=== PATIENT | female | born 1995 | race Caucasian/White ===

== ENCOUNTER 2019-03-14 07:44 | Day surgery (SDC) | payer OTHER ==
[2019-03-14] VITALS (15 sets, daily range): BP systolic 96–153; BP diastolic 51–81; PULSE 60–92; RESP 16–24; Ht 170.2 cm; Wt 112.2 kg
[~2019-03-14] VITALS: Ht 170.2 cm; Wt 112.2 kg
[~2019-03-14 07:44] MED LIST: DESFLURANE 15 MIN ONE
[2019-03-14] MEDS ORDERED: CEFAZOLIN 1 GM/50 ML (PMX) 50 ML IVPB ONE (08:00)
[2019-03-14] MEDS ORDERED: SOD CHLORIDE 0.9% 1,000 ML IV SCH (08:00)
--- NOTE | 2019-03-14 09:39 | PREAC ---
Date/Time of Note Date/Time of Note DATE: 03/14/19 TIME: 09:38 Anesthesia Eval and Record Evaluation Time Pre-Procedure Interview DATE: 03/14/19 TIME: 09:38 Age 24 Sex female NPO: 8 hrs Preoperative diagnosis pilonidal cyst Planned procedure excision pilonidal cyst Past Medical History Past Medical History: Includes GI: Obesity Surgery & Anesthesia Issues No known issue (never had anesthesia) Meds Anticoagulation: No Beta Soni within 24 hr: No Reason Beta Soni not given: Pt. not on B-Soni No Active Prescriptions or Reported Meds Current Medications Sodium Chloride 1,000 ml @ 75 mls/hr [id number] IV ; Start 03/14/19 at 08:00; Stop 03/14/19 at 21:19 Meds reviewed: Yes (NONE) Allergies Coded Allergies: No Known Drug Allergies (Unverified Allergy, Unknown, 03/14/19) Allergies Reviewed: Yes Labs/Studies Labs Reviewed: Reviewed by anesthesiologist test: Negative Pre-procedure Exam Airway: Adequate mouth opening, Adequate thyromental dist Mallampati: Mallampati II Teeth: Normal (braces are intact) Lung: Normal Heart: Normal ASA Physical Status ASA physical status: 2 Emergency: None Planned Anesthetic General/MAC: ETT Planned Pain Management Parenteral pain med, Local by surgeon Pre-operative Attestations Prior to commencing anesthesia and surgery, the patient was re-evaluated, there was verification of: *The patient's identity *The results of appropriate recent lab work and preoperative vital signs *The above evaluation not changing prior to induction *Anesthetic plan, risk benefits, alternative and complications discussed with patient/family; questions answered; patient/family understands, accepts and wishes to proceed. GLENDA LOPEZ Mar 14, 2019 09:39
[2019-03-14] MEDS ORDERED: PROPOFOL 20 ML ONE (09:54)
[2019-03-14] MEDS ORDERED: ROCURONIUM 50 MG INJ ONE (09:54)
[2019-03-14] MEDS ORDERED: CEFAZOLIN 1 GM INJ ONE (09:54)
[2019-03-14] MEDS ORDERED: LIDOCAINE 2% (SDV) 5 ML INJ ONE (09:54)
[2019-03-14] MEDS ORDERED: FENTAnyl 50 MCG/ML VIAL ONE ×2 (09:55→11:19)
[2019-03-14] MEDS ORDERED: MIDAZOLAM 1 MG/ML 2 ML INJ ONE (09:55)
[2019-03-14] MEDS ORDERED: FENTAnyl 50 MCG/ML VIAL IV PRN ×3 (10:30)
[2019-03-14] MEDS ORDERED: MEPERIDINE 25 MG INJ IV PRN (10:30)
[2019-03-14] MEDS ORDERED: ONDANSETRON 4 MG INJ IV PRN ×2 (10:30→12:30)
[2019-03-14] MEDS ORDERED: OXYCODONE/ACETAMINOPHEN (5/325) TAB PO PRN ×2 (10:30)
--- NOTE | 2019-03-14 10:44 | HPN ---
Date/Time of Note Date/Time of Note DATE: 03/14/19 TIME: 10:43 Interval H&P Admission Note Pt. seen H&P reviewed: No system changes ANGELITO SOTO MD Mar 14, 2019 10:44
[2019-03-14] MEDS ORDERED: LIDOCAINE 1%/EPI (1:100,000) (MDV) 20 ML ONE (10:49)
[2019-03-14] MEDS ORDERED: BUPIVACAINE 0.5%/EPI (SDV) 10 ML INJ ONE (10:49)
[2019-03-14] MEDS ORDERED: BUPIVACAINE 0.5%/EPI (SDV) 30 ML INJ ONE (10:50)
[2019-03-14] MEDS ORDERED: FAMOTIDINE 20 MG INJ ONE (11:02)
[2019-03-14] MEDS ORDERED: METOCLOPRAMIDE 10 MG INJ ONE (11:02)
[2019-03-14] MEDS ORDERED: DEXAMETHASONE 4 MG/ML 5 ML INJ ONE (11:02)
[2019-03-14] MEDS ORDERED: ONDANSETRON 4 MG INJ ONE (11:02)
[2019-03-14] MEDS ORDERED: SUGAMMADEX SODIUM 200 MG/2 ML VIAL IV ONE (11:20)
[2019-03-14] MEDS ORDERED: POVIDONE IODINE 10% 28.4 GM OINT ONE (11:54)
[2019-03-14] MEDS ORDERED: KETOROLAC 30 MG INJ IV PRN (12:30)
[2019-03-14] MEDS ORDERED: HYDROCODONE/APAP (5/325) TAB PO PRN (12:30)
--- NOTE | 2019-03-14 12:30 | SIPON ---
Date/Time of Note Date/Time of Note DATE: 03/14/19 TIME: 12:25 Operative Report Preoperative Diagnosis Pilonidal cysts and sinuses. Postoperative Diagnosis This same (one larger cyst the other one is smaller cyst which was located more caudal. Also sinuses ending into the cysts. Operation/Procedure Performed Excision of the cyst and sinuses and all the abnormal inflamed tissues 14 cm long and 3 cm wide on each side for tension-free closure of the wound. Surgeon see signature line social human services assistants None Anesthesia: general Estimated blood loss: minimal Transfusion Required none Specimen The pilonidal cyst and sinuses and all abnormal tissue was sent for pathologic evaluation. Grafts/Implants none Complications none ANGELITO SOTO MD Mar 14, 2019 12:30
--- NOTE | 2019-03-14 13:52 | PAC ---
Date/Time of Note Date/Time of Note DATE: 03/14/19 TIME: 13:51 Post-Anesthesia Notes Post-Anesthesia Note Last documented vital signs Vital Signs Date Temp Pulse Resp B/P (MAP) Pulse Ox O2 O2 Flow FiO2 Time Delivery Rate 03/14/19 74 16 125/54 97 Room Air 13:22 (77) 03/14/19 98.3 6.0 12:27 Activity: WNL Respiratory function: WNL Cardiovascular function: WNL Mental status: Baseline Pain reasonably controlled: Yes Hydration appropriate: Yes Nausea/Vomiting absent: Yes GLENDA LOPEZ Mar 14, 2019 13:51
--- NOTE | 2019-03-14 18:28 | OPR ---
DATE OF OPERATION: 03/14/2019 PREOPERATIVE DIAGNOSIS: Pilonidal cyst and sinuses. POSTOPERATIVE DIAGNOSIS: Pilonidal cyst and sinuses (2 pilonidal cysts cephalad, one much bigger than the caudal one and 3 sinuses). SURGEON: Jeremy Soto MD SOFTWARE DEVELOPER: None. ANESTHESIA: General and local. ANESTHESIOLOGIST: Beck Vargas CRNA PROCEDURES: 1. Excision of the pilonidal cyst and sinuses in continuity in one piece. 2. Mobilization of the local flap advancement, length 14 cm, width 3 to 4 cm on each side. 3. Closure of the wound in several layers. DESCRIPTION OF PROCEDURE: The patient was brought to the operating room. While on the bed, anesthesia was induced by the anesthesiologist and after securing the airway, the patient's position was changed to prone position. Care was taken to protect all the pressure spots of the joints and other areas. Then, wide tapes were applied over the gluteal areas on both sides and was pulled apart and taped to the operating table side and by this action, the area of the operation was completely exposed then the area of the operation namely sacrococcygeal area of the back was prepped with Betadine and draped in usual sterile fashion. A 2 grams of antibiotic was given to the patient by the anesthesiologist. Timeout was called. The patient was identified, site of operation and type of operation and were discussed with the team. All the concerns were addressed. At this time, a solution of mixture of 30 mL of 0.5% Marcaine with epinephrine plus 20 mL of 1% lidocaine with epinephrine was used all through the operation for local anesthesia. At the beginning, 30 mL of the anesthetic was injected all around the area of the operation to reduce also the bleeding. Then there were several openings of the sinuses. Three of them were probed with lacrimal probe and 2 of them had connection to the cysts . They were injected with Betadine solution with 21 Angiocath to determine and to delineate borders of cysts. Then, using #15 blade, incision was made almost elliptical around the largest cyst which was more cephalad and carried down through the midline. The depths of the incision was different and varied between 2-1/2 cm proximally to about 1 cm distally. Then after the skin was incised, subcutaneous tissue was dissected with electrocautery down to the presacral fascia. Eventually, all the cysts and sinuses and abnormal tissues were completely excised and was sent for pathologic evaluation. Hemostasis was completely achieved. At this time, the drapes attached to the gluteal area were released so that the tension was relieved and may it clear how free of tension the repair would be. It appeared that there was need for further tissue mobilization; therefore, local flap advancement at the level of the sacrococcygeal fascia was performed on the left side and on the right side, superiorly and inferiorly about 3 cm on each side and by this action, we could approach and bring the edges of the skin together without any tension. At this time, wound was thoroughly irrigated with hydrogen peroxide and then normal saline solution and then Betadine and then we started closing the deep layer with #2-0 Vicryl interrupted sutures were applied. Some areas, 3 layers closure was performed. Some areas are 2 layers. Then at the end, the skin was approximated and closed with #2-0 Prolene or 2-0 nylon suture with interrupted vertical mattress and some areas with transverse mattress. At the end, Betadine ointment was applied over the wound and packed with sponges and taped to the gluteal skin area. The patient tolerated procedure well. Sponge and needle and instrument count reported correct x2. Specimen was sent for pathologic evaluation. Estimated blood loss is nil. Local anesthesia is about 50 mL, a mixture of 0.5 % Marcaine and epinephrine and 20 mL of lidocaine 1% with epinephrine was used. The patient's position was changed to supine position and then extubated and transferred to recovery room in stable condition. Dictated By: JEREMY SOTO MD PS/SERGEI Conf#: [id number] DID#: [id number] CC: CHARLOTTE QUILES MD;*EndCC* MTDD
== END 2019-03-14 14:15 | disposition home or self-care (01) ==
LOC: SDS 07:44
DX: L05.91 Pilonidal cyst without abscess (principal)
CPT/HCPCS: 11772; 84520; 84703; 85025; 85610; 85730; 88304; J0690; J1100; J2250; J2405; J2765; J3010; Z7512; Z7610